=== PATIENT | male | born 1975 | race Caucasian/White ===

== ENCOUNTER 2016-05-27 12:06 | Emergency (ER) | payer SELFPAY ==
[2016-05-27 12:23] VITALS: BP 153/82; PULSE 82; RESP 14; TEMP 97.9; O2SAT 95
--- NOTE | 2016-05-27 12:43 | UCPHY ---
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 He denies any acute injury but he noticed later in the evening gradual onset of aching pain in the left rhomboid and trapezium. It has now been 6 days any still has symptoms. He describes the nature the pain is achy and moderate baseline becomes sharp more severe with movement of his left shoulder and lesser so with a deep breath. He has taken ibuprofen with partial relief and notes no other exacerbating or alleviating factors. ROS: No fevers. HEENT: No complaints pulmonary: No pleuritic pain or dyspnea cardiovascular: No heart palpitations. No lower extremity swelling. Neuro: No numbness or tingling in left arm. 10 point ROS is otherwise negative. 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 He is right-hand dominant but ambidextrous. Smoking Status: Current every day smoker Physical Exam: Physical Exam Vital signs are normal. General: No acute distress Eyes: Pupils equal and react to light. Extraocular motions are intact. Lungs: Clear to auscultation bilaterally. No respiratory distress. Cardiac: Regular rate and rhythm with no murmur gallop or rub Pulses are 2+ and symmetric in the affected extremity. Neck: Patient has no midline tenderness. He has left trapezius muscle spasm and tenderness that is mild Back: Patient has rhomboid tenderness the left side the reproduces his symptoms. Despite this retains good range of motion of his shoulder. Skin: No rash or pallor. Neuro: Alert. 5/5 strength bilateral upper extremities and no light touch sensory deficits in upper extremities. Lower extremities: Nontender no swelling. Initial differential diagnosis: Rhomboid muscle strain, trapezius muscle strain , muscle spasm, doubt rotator cuff injury, doubt pulmonic process, pleurisy or P Constitutional: Initial Vital Signs Temperature (C) 36.6 C 05/27/16 12:19 Heart Rate 82 05/27/16 12:19 Respiratory Rate 14 05/27/16 12:19 Blood Pressure 153/82 H 05/27/16 12:19 O2 Sat (%) 95 05/27/16 12:19 O2 Delivery Mode Room Air Allergies/Adverse Reactions: No Known Allergies Allergy (Unverified 05/27/16 12:18) Home Medications: Medication Instructions Recorded Albuterol 05/27/16 Hydrocodone/APAP 5/325 [Lantry 1 - 2 tab PO Q4PRN PRN #15 tab 05/27/16 5/325 (*)] Methocarbamol [Robaxin 750 mg (*)] 750 - 1,500 mg PO QID PRN #30 tab 05/27/16 MDM/Departure - [facility] ED Course/Re-evaluation: This patient's findings are classic for musculoskeletal strain so will not pursue further workup at this time. Patient is comfortable with this. I counseled him regarding muscle strain and spasm. - Depart Disposition: Home, Routine, Self-Care Clinical Impression: Strain of rhomboid muscle Qualifiers: Encounter type: initial encounter Qualified Code(s): S29.012A - Strain of muscle and tendon of back wall of thorax, initial encounter Trapezius muscle strain Qualifiers: Encounter type: sequela Laterality: left Qualified Code(s): S46.812S - Strain of other muscles, fascia and tendons at shoulder and upper arm level, left arm, sequela Condition: Good Instructions: How to Stop Smoking (ED), Muscle Strain (ED) Additional Instructions: Diagnoses: 1. Rhomboid muscle strain 2. Trapezius muscle strain and spasm Plan: Gentle stretches in the morning after ibuprofen and warm bath or shower as described hold each stretch for 3-5 minutes [id number] mg per 6 hours as needed for pain Methocarbamol muscle relaxant in addition if needed. Vicodin in addition if needed for pain that prevents sleep. Avoid heavy lifting on the left side until symptoms improve. Quit smoking The symptoms should improve over the next 3-7 days or so. Call your primary care physician or : Ottoniel Posadas MD [employer] in [place], [place] Address: [address] [place], [place] [id number] [facility] [id number], [place] [address] to arrange follow-up appointment for a recheck in 5-10 days If he developed significant chest pain, shortness of breath or other concerns, go the emergency department for further evaluation Prescriptions: Hydrocodone/APAP 5/325 [Lantry 5/325 (*)] 1 - 2 tab PO Q4PRN PRN #15 tab PRN Reason: Pain Methocarbamol [Robaxin 750 mg (*)] 750 - 1,500 mg PO QID PRN #30 tab PRN Reason: Muscle Spasms - PQRS PQRS Measurement: NA
== END 2016-05-27 12:55 | disposition home or self-care (01) ==
LOC: CED 12:06
DX: S29.012A Strain of muscle and tendon of back wall of thorax, initial encounter (principal); S46.812A Strain of other muscles, fascia and tendons at shoulder and upper arm level, left arm, initial encounter; X58.XXXA Exposure to other specified factors, initial encounter
CPT/HCPCS: G0463-PO